=== PATIENT | female | born 2000 | race Caucasian/White ===

== ENCOUNTER 2022-06-01 08:52 | Emergency (ER) | payer OTHER, SELFPAY ==
--- NOTE | ~2022-06-01 | XR_ITS ---
EXAMINATION: XR abdomen/kub 1V INDICATION: Lower abdominal pain TECHNIQUE: Supine views of the abdomen were obtained on 2 radiographs. COMPARISON: None FINDINGS: The bowel gas pattern is normal. No dilated loops of bowel are evident. The visualized lung bases are clear. IMPRESSION: 1. No radiographic correlate for the patient's symptoms. Reviewed, dictated and finalized at location B.
[2022-06-01 08:56] VITALS: BP 126/94; PULSE 81; RESP 16; TEMP 36.9; O2SAT 97
--- NOTE | 2022-06-01 09:03 | ED.ABDPAIN ---
HPI - Abdominal Pain General Chief Complaint: Abdominal Pain Stated Complaint: abd pain Time Seen by Provider: 06/01/22 08:54 History of Present Illness HPI narrative: 19-year-old female presents to the emergency room for evaluation of lower abdominal pain. Patient endorses being constipated for the last 3 days, states that she took an [id number] Dulcolax to alleviate her symptoms. Patient states that she has had a large bowel movement but is continued to have cramping pain. Patient denies fever. Patient denies dysuria. Abdominal pain is associated with some nausea and one episode of nonbloody and nonbilious emesis this morning. Related Data Allergies Allergy/AdvReac Type Severity Reaction Status Date / Time No Known Allergies Allergy Verified 06/01/22 09:00 Review of Systems Review of Systems: CONSTITUTIONAL: Denies fever, chills, or sweats. EYES: Denies visual changes, redness, or discharge. ENT: Denies rhinorrhea, congestion, sore throat, or otalgia. CARDIOVASCULAR: Denies chest pain, palpitations, or edema. RESPIRATORY: Denies cough or dyspnea. GASTROINTESTINAL: Reports abdominal cramping and nausea GENITOURINARY: Denies dysuria or hematuria. SKIN: Denies rash or itching. MUSCULOSKELETAL: Denies back pain, joint pain, or myalgia. NEUROLOGIC: Denies headache, numbness, dizziness, or weakness. PSYCHIATRIC: Denies anxiety or depression. Exam Narrative: GENERAL: Well-appearing, well-nourished, no physical limitations, and in no acute distress. HEAD: Normocephalic, atraumatic. EYES: Conjunctivae normal, PERRLA and EOMI. CHEST: Clear to auscultation. No respiratory distress. No wheezes rales or rhonchi. No tenderness. HEART: Regular rate and rhythm. No murmur heard. Normal peripheral pulses. ABDOMEN: Soft, nontender, nondistended, normal active bowel sounds. BACK: No CVA tenderness; EXTREMITIES: Normal range of motion. No edema. No clubbing or cyanosis SKIN: Warm, dry, no rash. No noted wounds NEURO: No focal deficits. Alert and oriented x3. MAEW. CN's II-XI intact bilaterally, normal gait PSYCH: Cooperative. Normal mood and affect. Course Vital Signs Vital signs: Vital Signs Temperature 36.9 C 06/01/22 08:56 Pulse Rate 81 06/01/22 08:56 Respiratory Rate 16 06/01/22 08:56 Blood Pressure 126/94 H 06/01/22 08:56 Pulse Oximetry 97 06/01/22 08:56 Temperature 36.9 C 06/01/22 08:56 Pulse Rate 81 06/01/22 08:56 Respiratory Rate 16 06/01/22 08:56 Blood Pressure 126/94 H 06/01/22 08:56 Pulse Oximetry 97 06/01/22 08:56 MDM - Abdominal Pain MDM Narrative Medical decision making narrative: 21-year-old female presented emergency room for lower abdominal pain. Abdominal exam was without peritoneal signs. No evidence of acute abdomen at this time. Patient is nontoxic. Given history and exam, there is low suspicion for hepatobiliary disease, pancreatitis, infectious processes, or bowel obstruction. Presentations not consistent with any acute or emergent causes of abdominal pain at this time. Will discharge patient home with antiemetics and antispasmodic. Lab Data Attestation: I reviewed the patient's lab results. Result diagrams: 06/01/22 09:09 06/01/22 09:09 Labs: Lab Results 06/01/22 06/01/22 06/01/22 Range/Units 09:09 09:09 09:21 WBC 9.3 (4.5-10.0) K/mm3 RBC 4.35 (4.2-5.4) M/mm3 Hgb 14.5 (12.0-15.0) g/dL Hct 41.5 (37.0-47.0) % MCV 95.4 (80-100) fl MCH 33.3 (26-34) pg MCHC 34.9 (32-36) g/dl RDW 11.8 (11.5-14.5) % Plt Count 333 (150-375) k/mm3 MPV 8.7 (7.4-10.4) fl Immature Gran % (Auto) 0.2 (0-0.5) % Neut % (Auto) 72.0 (45.5-73.1) % Lymph % (Auto) 17.5 L (18.3-44.2) % Grayson % (Auto) 8.8 H (2.6-8.5) % Eos % (Auto) 1.2 (0-4.4) % Baso % (Auto) 0.3 (0.2-1.2) % Lymph # (Auto) 1.63 (0.9-3.2) K/mm3 Grayson # (Auto) 0.8 H (0.1-0.6) K/mm3 Eos # (Auto) 0.1
[2022-06-01 09:16] LABS: Basophils Percent Auto 0.3 % (0.2-1.2); Eosinophils Absolute Auto 0.1 K/mm3 (0-0.3); Eosinophils Percent Auto 1.2 % (0-4.4); Hematocrit 41.5 % (37.0-47.0); Hemoglobin 14.5 g/dL (12.0-15.0); Immature Granulocyte Absolute 0.02 K/mm3 (0.00-0.031); Immature Granulocyte Percent A 0.2 % (0-0.5); Lymphocytes Absolute Auto 1.63 K/mm3 (0.9-3.2); Lymphocytes Percent Auto 17.5 % (18.3-44.2); Mean Corpuscular HGB Conc 34.9 g/dl (32-36); Mean Corpuscular Hemoglobin 33.3 pg (26-34); Mean Corpuscular Volume 95.4 fl (80-100); Mean Platelet Volume 8.7 fl (7.4-10.4); Monocytes Absolute Auto 0.8 K/mm3 (0.1-0.6); Monocytes Percent Auto 8.8 % (2.6-8.5); Neutrophils Absolute Auto 6.7 K/mm3 (1.3-6.7); Platelet Count Result 333 k/mm3 (150-375); Red Blood Count 4.35 M/mm3 (4.2-5.4); Red Cell Distribution Width 11.8 % (11.5-14.5); White Blood Count 9.3 K/mm3 (4.5-10.0)
[2022-06-01] MEDS: SODIUM CHLORIDE 0.9% IV 1,000 ML 999 ML IV CONT (09:16)
[2022-06-01] MEDS: DICYCLOMINE HCL INJ 20 MG/2 ML VIAL IM (09:17)
[2022-06-01 09:28] LABS: Alanine Aminotransferase 16 U/L (6-35); Albumin Level 4.8 g/dL (3.5-5.1); Alkaline Phosphatase 102 U/L (38-126); Anion Gap 9 mmol/L (8-16); Aspartate Amino Transferase 23 U/L (14-36); Bilirubin,Total 0.5 mg/dL (0.2-1.3); Blood Urea Nitrogen 16 mg/dL (7-17); Calcium 9.3 mg/dL (8.4-10.2); Carbon Dioxide 26 mmol/L (22-30); Chloride 105 mmol/L (98-107); Estimated CRCL calculation 74 ml/min; Estimated Glomerular Filt Rate 56; Glucose 100 mg/dL (65-110); Lipase 30 U/L (23-300); Sodium 140 mmol/L (137-145)
[2022-06-01 09:32] LABS: Appearance Urine Clear (Clear); Bilirubin Urine Negative (Negative); Blood Urine Trace-lysed (Negative); Color Urine Yellow (Yellow); Glucose Urine UA Negative (Negative); Ketones Urine Negative (Negative); Leukocyte Esterase Ur Negative LEU/UL (Negative); Nitrate Urine Negative (Negative); Protein Urine Negative (Negative); Specific Grav Ur 1.015 (1.001-1.035); Urobilinogen Urine 0.2 mg/dL (<2.0); pH Urine 7.5 (5.0-9.0)
[2022-06-01 09:42] LABS: RBC Urine 0-2 /hpf (0-2); Squamous Epithelial Cell Urine Occasional /hpf (Few); WBC Urine 0-3 /hpf
[2022-06-01] MEDS: ONDANSETRON INJ 4 MG/2 ML VIAL IV PUSH (09:47)
[2022-06-01 10:01] LABS: Add Urine Microscopic? YES
[2022-06-01 10:45] VITALS: BP 110/77; PULSE 81; RESP 19; O2SAT 97
== END 2022-06-01 10:45 | disposition home or self-care (01) ==
LOC: ANHED 09:31
PROVIDERS: Emergency Medicine; Emergency Provider Nurse Practitioner Family
DX: K59.00 Constipation, unspecified (principal)
CPT/HCPCS: 36415; 74018; 80053; 81001; 81025; 83690; 85025; 96361; 96372; 96374; 99284; J0500; J2405; J7030

== ENCOUNTER 2022-06-03 00:32 | Emergency (ER) | payer OTHER, SELFPAY ==
--- NOTE | ~2022-06-03 | CT_ITS ---
EXAMINATION: CT abdomen pelvis w con DATE: 06/03/2022 01:46 INDICATION: Right lower quadrant abdominal pain TECHNIQUE: Computed tomography (CT) of the abdomen and pelvis was performed with 100 cc Omnipaque 300 intravenous contrast. The dose-length product was 604.22 mGy-cm. Automated exposure control and iter ative reconstruction technique were employed. COMPARISON: None. FINDINGS: Lung bases are unremarkable. Heart size normal. No significant pleural or pericardial effus ion. No significant vascular abnormality. No lymphadenopathy. No free air or free fluid. Nonobstructi ve bowel gas pattern. The liver, spleen, pancreas, adrenal glands are unremarkable. There is patchy hypoperfusion of the ki dneys bilaterally, consistent with pyelonephritis. No obstructing stone, mass or hydronephrosis. Norm al appendix. 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 Small fat-contai areli umbilical hernia. IMPRESSION: 1. Patchy hypoperfusion of the kidneys, consistent with bilateral pyelonephritis. Clinically correlat e. Reviewed, dictated and finalized at location A. IMPRESSION: 1. Patchy hypoperfusion of the kidneys, consistent with bilateral pyelonephriti s. Clinically correlate.
[2022-06-03 00:36] VITALS: BP 142/95; PULSE 85; RESP 18; TEMP 36.6; O2SAT 100
[2022-06-03 01:01] LABS: Basophils Absolute Auto 0.1 K/mm3 (0.0-0.1); Basophils Percent Auto 0.4 % (0.2-1.2); Eosinophils Absolute Auto 0.1 K/mm3 (0-0.3); Eosinophils Percent Auto 0.9 % (0-4.4); Hematocrit 41.3 % (37.0-47.0); Hemoglobin 14.6 g/dL (12.0-15.0); Immature Granulocyte Absolute 0.04 K/mm3 (0.00-0.031); Immature Granulocyte Percent A 0.3 % (0-0.5); Lymphocytes Absolute Auto 2.05 K/mm3 (0.9-3.2); Lymphocytes Percent Auto 15.9 % (18.3-44.2); Mean Corpuscular HGB Conc 35.4 g/dl (32-36); Mean Corpuscular Hemoglobin 33.2 pg (26-34); Mean Corpuscular Volume 93.9 fl (80-100); Mean Platelet Volume 8.8 fl (7.4-10.4); Monocytes Absolute Auto 0.9 K/mm3 (0.1-0.6); Monocytes Percent Auto 6.8 % (2.6-8.5); Neutrophils Absolute Auto 9.8 K/mm3 (1.3-6.7); Neutrophils Percent Auto 75.7 % (45.5-73.1); Platelet Count Result 350 k/mm3 (150-375); Red Cell Distribution Width 11.5 % (11.5-14.5); White Blood Count 12.9 K/mm3 (4.5-10.0)
[2022-06-03 01:03] LABS: Appearance Urine Clear (Clear); Bilirubin Urine Negative (Negative); Blood Urine 1+ (Negative); Color Urine Yellow (Yellow); Glucose Urine UA Negative (Negative); Ketones Urine Negative (Negative); Leukocyte Esterase Ur Negative LEU/UL (Negative); Nitrate Urine Negative (Negative); Protein Urine Negative (Negative); Urobilinogen Urine 0.2 mg/dL (<2.0)
[2022-06-03 01:11] LABS: Alanine Aminotransferase 18 U/L (6-35); Albumin Level 4.8 g/dL (3.5-5.1); Alkaline Phosphatase 107 U/L (38-126); Anion Gap 10 mmol/L (8-16); Aspartate Amino Transferase 32 U/L (14-36); Bilirubin,Total 0.6 mg/dL (0.2-1.3); Blood Urea Nitrogen 14 mg/dL (7-17); Calcium 9.2 mg/dL (8.4-10.2); Carbon Dioxide 27 mmol/L (22-30); Chloride 101 mmol/L (98-107); Estimated CRCL calculation 74 ml/min; Estimated Glomerular Filt Rate 56; Glucose 107 mg/dL (65-110); Lipase 28 U/L (23-300); Potassium 3.6 mmol/L (3.4-5.0); Sodium 138 mmol/L (137-145)
[2022-06-03 01:15] LABS: Mucus Urine Rare /lpf; RBC Urine 0-2 /hpf (0-2); Squamous Epithelial Cell Urine Rare /hpf (Few); WBC Urine 0-3 /hpf
[2022-06-03 01:19] LABS: Add Urine Microscopic? YES
--- NOTE | 2022-06-03 01:20 | ED.GENADULT ---
HPI - General Adult General Chief complaint: Abdominal Pain Stated complaint: rlq abd pain Time Seen by Provider: 06/03/22 00:36 Source: RN notes reviewed History of Present Illness HPI narrative: Patient presents emergency department from home for abdominal pain. Patient states pain began 2 days ago and was initially generalized and is now located down to the right lower quadrant. The pain is described as aching in nature and does not radiate associate with nausea vomiting. Denies any fevers or chills chest pain shortness of breath diarrhea or any other symptoms. Patient states she was seen here several days ago and prescribed dicyclomine and ibuprofen at that time with minimal relief Related Data Allergies Allergy/AdvReac Type Severity Reaction Status Date / Time No Known Allergies Allergy Verified 06/01/22 09:00 Review of Systems Review of Systems: Gen.: Denies fevers or chills ENT: Denies congestion Respiratory: Denies shortness of breath or cough CV: Denies chest pain or palpitations GI: See HPI denies burning, urgency, frequency or hematuria Musculoskeletal: Denies back pain or muscle pain Neuro: Denies numbness, tingling, weakness or focal weakness Skin: Denies rash Except as documented, all other systems reviewed and negative FOR[facility] Past Medical History Medical History (Updated 06/03/22 @ 04:31 by Ruy Dean DO) Patient denies significant medical history Social History Social History (Updated 06/03/22 @ 01:21 by Ruy Dean DO) Smoking status: Never smoker Exam Narrative: APPEARANCE: No acute distress, nontoxic, resting in bed HEENT: Normocephalic, atraumatic, OMM RESPIRATORY: No respiratory distress, clear to auscultation bilaterally with no rhonchi wheezing or rales CARDIOVASCULAR: RRR s murmur ABDOMINAL: Soft nondistended tender palpation in right lower quadrant and mild tenderness left lower quadrant no tenderness in right upper quadrant and left upper quadrant no rebound or guarding MUSCULOSKELETAl: Moves all extremities. No clubbing, cyanosis or edema. NEURO: Awake and alert. Following commands, speech normal, no focal deficits SKIN:: Warm, dry. Normal Color PSYCHIATRIC: Normal affect/mood Course Course Emergency Course: Called and spoke with the radiologist Dr. Gongora and CT results as well as her UA. He states that this time after review reviewed no other cause for continues to appear in the present state outside of pyelonephritis no signs of infarcts Patient states that they are feeling much better at this time. States abdominal pain has resolved. Repeat abdominal exam shows the patient's abdomen to be soft and nontender. Discussed with patient results of workup and diagnosis. Discussed need for follow-up with primary care physician, reasons to return to the emergency department in proper use of medication. Patient understands and agrees to current treatment plan discussed with her CT results will send urine for culture start on antibiotics Vital Signs Vital signs: Vital Signs Temperature 98 F 06/03/22 00:36 Pulse Rate 85 06/03/22 00:36 Respiratory Rate 18 06/03/22 00:36 Blood Pressure 142/95 H 06/03/22 00:36 Pulse Oximetry 100 06/03/22 00:36 Oxygen Delivery Room Air 06/03/22 00:36 Temperature 98 F 06/03/22 00:36 Pulse Rate 50 L 06/03/22 04:03 Respiratory Rate 16 06/03/22 04:03 Blood Pressure 123/81 06/03/22 04:03 Pulse Oximetry 100 06/03/22 04:03 Oxygen Delivery Room Air 06/03/22 00:36 Medical Decision Making MDM Narrative Medical decision making narrative: Patient's abdomen is soft without significant pain or signs of surgical abdomen on serial exams. Lab and x-ray evaluations are reviewed and patient is felt to be a reasonable candidate for outpatient management. Patient was instructed as to limitations of x-ray and laboratory evaluation and encouraged to return to ED or primary physician for repeat exam in 12 hours if cont
[2022-06-03] MEDS: SODIUM CHLORIDE 0.9% IV 1,000 ML 999 ML IV CONT ×2 (01:22→04:30)
[2022-06-03] MEDS: KETOROLAC 30 MG/ML VIAL (*BKC) IV PUSH (01:23)
[2022-06-03 04:03] VITALS: BP 123/81; PULSE 50; RESP 16; O2SAT 100
[2022-06-03 05:10] VITALS: BP 125/77; PULSE 61; RESP 16; O2SAT 98
== END 2022-06-03 05:13 | disposition home or self-care (01) ==
PROVIDERS: Nurse Practitioner Family; Emergency Provider Emergency Medicine
DX: N12 Tubulo-interstitial nephritis, not specified as acute or chronic (principal)
CPT/HCPCS: 36415; 74177; 80053; 81001; 81025; 83690; 85025; 87086; 87088; 96361; 96365; 96375; 99284; J0696; J1885; J7030; Q9967